=== PATIENT | female | born 2005 | race Caucasian/White ===

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

== ENCOUNTER 2023-04-03 12:44 | Outpatient (CLI) | payer OTHER, SELFPAY ==
[2023-04-06 15:06] LABS: TB Interpretation Negative (Negative); TB1 Ag minus Nil 0.06 IU/ml; TB2 Ag minus Nil 0.05 IU/mL
== END 2023-04-03 12:45 | disposition home or self-care (01) ==
LOC: LBO 12:44
PROVIDERS: PCP Nurse Practitioner Family; Visit Provider Nurse Practitioner Pediatrics
DX: Z11.1 Encounter for screening for respiratory tuberculosis (principal)
CPT/HCPCS: 86480

== ENCOUNTER 2024-04-19 01:34 | Outpatient (CLI) | payer OTHER, SELFPAY ==
[2024-04-21 10:34] LABS: TB Interpretation Negative (Negative); TB1 Ag minus Nil 0.02 IU/ml
== END 2024-04-19 01:35 | disposition home or self-care (01) ==
LOC: LBO 01:34
PROVIDERS: PCP Nurse Practitioner Family; Visit Provider Nurse Practitioner Family
DX: Z11.1 Encounter for screening for respiratory tuberculosis (principal)
CPT/HCPCS: 36415; 86480

== ENCOUNTER 2025-05-04 15:12 | Outpatient (REF) | payer BC, SELFPAY ==
[2025-05-04 14:54] LABS: RBC 0-2 HPF (0-2)
== END 2025-05-04 15:13 | disposition home or self-care (01) ==
LOC: LBN 15:12
PROVIDERS: PCP Nurse Practitioner Family; Visit Provider Physician Assistant Medical
DX: R30.0 Dysuria (principal)
CPT/HCPCS: 87077; 81015; 87086; 87186